=== PATIENT | male | born 1980 | race Caucasian/White ===

== ENCOUNTER 2016-11-25 01:07 | Emergency (ER) | payer BC ==
[2016-11-25 01:41] VITALS: BP 131/72; PULSE 57; RESP 18; TEMP 98.8; O2SAT 98
[2016-11-25] MEDS ORDERED: Alum-Mag Hydrox-Simethicone Susp (30 mL) ONE (01:45)
[2016-11-25] MEDS ORDERED: Alum-Mag Hydrox-Simethicone Susp (30 mL) PO ONE (01:45)
--- NOTE | 2016-11-25 01:48 | ED PDOC ---
HPI: General Adult Time Seen by Provider: 11/25/16 01:45 Chief Complaint (Nursing): Abdominal Pain Chief Complaint (Provider): ABDOMINAL PAIN History Per: Patient (36 Y/O MALE H/O HIV (UNDETECTABLE VIRAL LOAD) HERE FOR EVALUATION OF 3 DAYS OF EPIGASTRIC PAIN CONTINUOUS. DENIES ANY VOMITING/ DIARRHEA/FEVERS. DENIES ANY WORSENING OR IMPROVEMENT WITH FOOD. HAS TRIED ANTACID WITHOUT RELIEF. H/O HERNIA SURGERY IN PAST. NO H/O SMOKING/DRUGS.) Past Medical History Reviewed: Historical Data, Nursing Documentation, Vital Signs Vital Signs: Last Vital Signs Temp 98.8 F 11/25/16 01:37 Pulse 57 L 11/25/16 01:37 Resp 18 11/25/16 01:37 BP 131/72 11/25/16 01:37 Pulse Ox 98 11/25/16 01:48 - Family History Family History: States: No Known Family Hx - Home Medications Home Medications: Ambulatory Orders Medication Instructions Recorded Cephalexin [Keflex] 500 mg PO BID #14 cap 03/23/14 Ibuprofen [Motrin] 600 mg PO Q6 PRN #10 tab 03/23/14 Ondansetron HCl [Zofran] 4 mg PO Q4 PRN #10 ml 03/23/14 Omeprazole Magnesium [Prilosec Otc] 20 mg PO DAILY #7 tablet. 11/25/16 - Allergies Allergies/Adverse Reactions: Allergies Allergy/AdvReac Type Severity Reaction Status Date / Time No Known Allergies Allergy Verified 03/23/14 17:32 Review of Systems ROS Statement: Except As Marked, All Systems Reviewed And Found Negative Physical Exam - Reviewed Nursing Documentation Reviewed: Yes Vital Signs Reviewed: Yes - Physical Exam Appears: Positive for: Well, Non-toxic, No Acute Distress Head Exam: Positive for: ATRAUMATIC, NORMAL INSPECTION, NORMOCEPHALIC Skin: Positive for: Normal Color, Warm, DRY Eye Exam: Positive for: EOMI, Normal appearance, PERRL ENT: Positive for: Normal ENT Inspection Neck: Positive for: Normal, Painless ROM Cardiovascular/Chest: Positive for: Regular Rate, Rhythm Respiratory: Positive for: CNT, Normal Breath Sounds Gastrointestinal/Abdominal: Positive for: Normal Exam, Bowel Sounds, Soft, Tenderness (EPIGASTRIC TENDERNESS NOTED.) Back: Positive for: Normal Inspection Extremity: Positive for: Normal ROM Neurologic/Psych: Positive for: Alert, Oriented - Laboratory Results Result Diagrams: 11/25/16 02:08 11/25/16 02:08 - ECG O2 Sat by Pulse Oximetry: 98 - Progress ED Course And Treament: d/w Dr. Claros maalox 30 ml po x 1 dose Pepcid 20 mg x 1 dose. Patient notes symptoms improved. Disposition - Clinical Impression Clinical Impression: Abdominal pain - Patient ED Disposition Is Patient to be Admitted: No - Disposition Disposition: Routine/Home Disposition Time: 03:29 Condition: FAIR Additional Instructions: stop motrin Prescriptions: Omeprazole Magnesium [Prilosec Otc] 20 mg PO DAILY #7 tablet. Instructions: Gastritis (DC), Diet for Ulcers and Gastritis (ED)
[2016-11-25 02:21] LABS: CHLORIDE 104 mmol/L (98-107)
[2016-11-25 02:22] LABS: POTASSIUM 4.1 MMOL/L (3.6-5.0); SODIUM 139 mmol/l (132-148)
[2016-11-25 02:24] LABS: ALB/GLOB RATIO 1.3 (1.0-2.1); AST/SGOT 45 U/L (17-59); BASO % 0.3 % (0.0-2.0); BILIRUBIN,TOTAL 0.6 mg/dl (0.2-1.3); CARBON DIOXIDE 25 mmol/L (22-30); EOS # 0.1 K/uL (0.0-0.7); EOS % 2.7 % (0.0-4.0); GFR AFRICAN-AMERICAN > 60; LYMPH # 1.5 K/uL (1.0-4.3); LYMPH % 34.5 % (20.0-40.0); MEAN CELL VOLUME 94.5 fl (80.0-94.0); MEAN CORPUSCULAR HGB CONC 32.8 g/dL (33.0-37.0); MEAN PLATELET VOLUME 8.8 fl (7.2-11.7); MONO # 0.7 K/uL (0.0-0.8); MONO % 15.5 % (0.0-10.0); RED CELL DISTRIBUTION WIDTH 13.9 % (11.5-14.5); TOTAL PROTEIN 7.2 G/DL (6.3-8.2); WHITE BLOOD COUNT 4.4 K/uL (4.8-10.8)
[2016-11-25 02:25] LABS: ALKALINE PHOSPHATASE 43 U/L (38-126); ALT/SGPT 56 U/L (21-72); BLOOD UREA NITROGEN 22 mg/dl (9-20); CALCIUM 9.1 mg/dL (8.4-10.2); GLUCOSE,RANDOM 92 mg/dL (75-110); LIPASE 69 U/L (23-300)
[2016-11-25] MEDS ORDERED: Sucralfate 1 gm/10 ml Oral Susp UD PO STA (02:43)
--- NOTE | 2016-11-25 08:52 | CARD ---
APPROVED REPORT EKG Measurement Heart [id number] <Conclusion> Normal sinus rhythm Normal ECG
--- NOTE | 2016-11-25 09:23 | RAD ---
HISTORY: EPIGASTRIC PAIN COMPARISON: 03/23/2014 FINDINGS: LUNGS: No active pulmonary disease. PLEURA: No significant pleural effusion identified, no pneumothorax apparent. CARDIOVASCULAR: Normal. OSSEOUS STRUCTURES: Minor multilevel degenerative spondylosis of the thoracic VISUALIZED UPPER ABDOMEN: Normal. OTHER FINDINGS: None. IMPRESSION: No active disease.
== END 2016-11-25 03:35 | disposition home or self-care (01) ==
LOC: H.ER 01:07
DX: R10.13 Epigastric pain (principal); R12 Heartburn
CPT/HCPCS: 71010; 80053; 83690; 84484; 85025; 93005; 99281; G0480

== ENCOUNTER 2017-03-03 23:44 | Emergency (ER) | payer BC ==
[2017-03-03 23:56] VITALS: BMI 25.1
[2017-03-04 00:01] VITALS: BP 131/76; PULSE 67; RESP 16; TEMP 98.2; O2SAT 98
[2017-03-04] MEDS ORDERED: Naproxen 500 MG TAB PO STA (00:08)
--- NOTE | 2017-03-04 00:14 | ED PDOC ---
HPI: Back Time Seen by Provider: 03/04/17 00:12 Chief Complaint (Nursing): Back Pain Chief Complaint (Provider): back pain History Per: Patient (37 y/o male h/o HIV normal CD4 count here with lower back pain worse with movement after visit to [facility] last week. attempted use of tylenol without relief. Deneis any urinary or rectal incontinence. NO fevers/ chillcs. Denies any IVDA.) Past Medical History Reviewed: Historical Data, Nursing Documentation, Vital Signs Vital Signs: Last Vital Signs Temp 98.2 F 03/03/17 23:56 Pulse 67 03/03/17 23:56 Resp 16 03/03/17 23:56 BP 131/76 03/03/17 23:56 Pulse Ox 98 03/03/17 23:56 - Family History Family History: States: No Known Family Hx - Home Medications Home Medications: Ambulatory Orders Medication Instructions Recorded Cephalexin [Keflex] 500 mg PO BID #14 cap 03/23/14 Ibuprofen [Motrin] 600 mg PO Q6 PRN #10 tab 03/23/14 Ondansetron HCl [Zofran] 4 mg PO Q4 PRN #10 ml 03/23/14 Omeprazole Magnesium [Prilosec Otc] 20 mg PO DAILY #7 tablet. 11/25/16 Naproxen [Naprosyn Tab] 375 mg PO Q8 PRN #15 tab 03/04/17 diaZEpam [Valium] 5 mg PO Q6 PRN #3 tab 03/04/17 - Allergies Allergies/Adverse Reactions: Allergies Allergy/AdvReac Type Severity Reaction Status Date / Time No Known Allergies Allergy Verified 03/03/17 23:55 Review of Systems ROS Statement: Except As Marked, All Systems Reviewed And Found Negative Musculoskeletal: Positive for: Back Pain Physical Exam - Reviewed Nursing Documentation Reviewed: Yes Vital Signs Reviewed: Yes - Physical Exam Appears: Positive for: Well, Non-toxic, No Acute Distress Head Exam: Positive for: ATRAUMATIC, NORMAL INSPECTION, NORMOCEPHALIC Skin: Positive for: Normal Color, Warm, DRY Eye Exam: Positive for: EOMI, Normal appearance, PERRL ENT: Positive for: Normal ENT Inspection Neck: Positive for: Normal, Painless ROM Cardiovascular/Chest: Positive for: Regular Rate, Rhythm Respiratory: Positive for: CNT, Normal Breath Sounds Gastrointestinal/Abdominal: Positive for: Normal Exam, Bowel Sounds, Soft Back: Positive for: Normal Inspection, Other (parasacral tendernes noted. NO bony tenderness.) Extremity: Positive for: Normal ROM Neurologic/Psych: Positive for: Alert, Oriented - ECG O2 Sat by Pulse Oximetry: 98 - Progress ED Course And Treament: Naproxen 500mg x 1 dose Disposition - Clinical Impression Clinical Impression: Back strain - Patient ED Disposition Is Patient to be Admitted: No - Disposition Disposition: Routine/Home Disposition Time: 12:14 Condition: FAIR Prescriptions: diaZEpam [Valium] 5 mg PO Q6 PRN #3 tab PRN Reason: Muscle Spasm Naproxen [Naprosyn Tab] 375 mg PO Q8 PRN #15 tab PRN Reason: Pain, Moderate (4-7) Instructions: Acute Low Back Pain (GEN) Forms: [facility] (Citizen Of [place])
== END 2017-03-04 00:54 | disposition home or self-care (01) ==
LOC: H.ER 23:44
DX: S39.012A Strain of muscle, fascia and tendon of lower back, initial encounter (principal); X58.XXXA Exposure to other specified factors, initial encounter; Y92.831 Amusement park as the place of occurrence of the external cause